=== PATIENT | female | born 1980 | race Caucasian/White ===

== ENCOUNTER 2025-03-19 19:49 | Emergency (ER) | payer OTHER, SELFPAY ==
[2025-03-19 19:59] VITALS: BP 148/92
[2025-03-19 20:26] LABS: Hematocrit 37.4 % (37.0-47.0); Hemoglobin 12.5 g/dL (12.0-16.0); Mean Corp Hgb Conc. 33.4 g/dL (33.0-37.0); Mean Corpuscular Volume 88.8 fL (81.0-99.0); Nucleated Red Blood Cells % 0 %; Platelet Count 235 10^3/uL (130-400); Red Cell Dist. Width 14.1 % (11.5-14.5)
[2025-03-19 20:42] LABS: HCG, Serum Qualitative Screen Negative
[2025-03-19 20:47] LABS: ALT (SGPT) 17 U/L (0-35); AST (SGOT) 18 U/L (14-36); Albumin 4.6 g/dl (3.5-5.0); Alkaline Phosphatase 52 U/L (38-126); Blood Urea Nitrogen 11 mg/dl (7-17); Calcium 9.6 mg/dl (8.4-10.2); Carbon Dioxide 27 mmol/L (22-30); Chloride 102 mmol/L (98-107); Glucose 123 mg/dl (70-99); Potassium 3.9 mmol/L (3.5-5.1); Sodium 136 mmol/L (135-145); Total Protein 7.5 g/dl (6.3-8.2); eGFR > 60.00
[2025-03-19 21:41] VITALS: BMI 23.9
[2025-03-19 21:47] VITALS: BP 135/82
[2025-03-19 22:00] VITALS: BP 140/86
--- NOTE | 2025-03-19 23:31 | ED.GENMED ---
History of Present Illness
General
Chief Complaint: Vaginal Bleeding
Source: patient
Time Seen by Provider: 03/19/25 22:28
History of Present Illness
History of Present Illness:
44-year-old female, no significant past medical history, presenting to the ER for evaluation after she started her menstrual normally 2-1/2 weeks ago but has had continuous bleeding since then. She notes some mild fatigue but otherwise feels her
usual self. No history of similar. Has not seen or contacted her RATE CLERK since symptoms started. Denies any oral contraceptives. Denies any fevers. No concern for . Denies any significant pain at time of my exam.
Past History
Past History
ED Past Medical History: None
ED Past Surgical History: None
Social History
Tobacco: Smoker
Alcohol: Occasional
Drug: None
Living: with family
Employment: Employed
Review of Systems
Review of Systems
All Other Systems: ROS reviewed and negative except as documented in HPI and ROS
Phy Exam
Physical Exam
Physical Exam:
GENERAL: Alert , in no apparent distress
EYE: clear conjunctiva b/l
HEAD: NCAT
ENT: mmm.
CARDIAC: Regular rate and rhythm .
LUNGS: Clear breath sounds bilaterally, no acute respiratory distress, no wheezes/rales/rhonchi
ABDOMEN: Soft, without focal tenderness, no r/g, no cvat
NEUROLOGICAL: Alert and oriented
SKIN: Warm and dry, skin intact.
MUSCULOSKELETAL: well perfused.
PSYCH: Normal and appropriate interaction.
Scores
Heart Failure Risk
Heart Failure Risk Score: Not Applicable
Heart Score for Chest Pain Patients
STEMI patient?: Not applicable
Withdrawal Assessment of Alcohol
Withdrawal Assessment Completed?: Not applicable
Course
Orders/Labs/Results
Orders:
Orders
03/19/25 20:03
Test Result ONCE
03/19/25 20:10
CMP [Comprehensive Metabolic Panel] Urgent
Complete Blood Count/With Diff Urgent
HCG, Serum Qualitative Screen Urgent
Comment: Notify provider if positive test present
03/19/25 22:28
Transvaginal US [US Pelvis W Transvag Combined] Urgent
Comment:
Reason For Exam: menorrhagia
Abnormal Lab Results
03/19/25
20:10
Neutrophils % 41.1 L %
(42.2-75.2)
Monocytes % 10.6 H %
(1.7-9.3)
Glucose 123 H mg/dl
(70-99)
03/19/25 20:10
03/19/25 20:10
Vital Signs
Initial and Last Documented VS:
Initial Vital Signs
Temp Pulse Resp BP Pulse Ox
98.5 F 73 18 148/92 100
03/19/25 19:59 03/19/25 19:59 03/19/25 19:59 03/19/25 19:59 03/19/25 19:59
Last Documented Vital Signs
Temp Pulse Resp BP Pulse Ox
98.5 F 54 18 134/90 99
03/19/25 19:59 03/19/25 21:47 03/19/25 21:47 03/19/25 23:38 03/19/25 23:39
MDM/Problems Addressed
Differential Diagnosis Includes:
Perimenopause
Uterine Fibroid
Anemia
Malignancy
MDM/Problems Addressed:
44-year-old female presenting to the ER for evaluation of breakthrough vaginal bleeding/menorrhagia over the last 2-1/2 weeks. Hemodynamically stable and in no acute distress. Labs were initiated in triage which show a normal hemoglobin. Will
order ultrasound to further assess with anticipation of need for outpatient follow-up with RATE CLERK.
*Radiology
Radiology exam reviewed: radiology read reviewed
*Pulse Oximetry
SaO2: 100
Oxygen Mode of Delivery: Room air
Patient hypoxic: no
*Critical Care Note
Total Time (30-74mins, 75-104mins- exclusive of procedures): Not Applicable
Comment
Comment:
IMPRESSION: Coarsening of uterine echotexture throughout the myometrium, with no evidence of a focal mass. One consideration for this finding would be adenomyosis. If there are persistent clinical symptoms and further imaging evaluation is desired,
MRI is more accurate in the diagnosis of adenomyosis.
Normal appearance of the endometrium.
Small minimally complex cyst arising in the left ovary, which is almost certainly benign, classified as O-RADS 2. In a 44-year-old, no further imaging follow-up is recommended.
Normal appearance of the right ovary.
Small amount of free pelvic fluid.
Patient Management
Escalation/DeEscalation of care consider admission/obs:
Ultrasound without any acute abnormalities. Patient will contact her RATE CLERK for outpatient follow-up. Will trial a 5-day course of oral TXA to help control symptoms. Patient aware of return precautions to the ER.
ED Attending Note
-
Portions of this chart may have been created with voice recognition software.� Occasional wrong word or��sound alike� substitutions may have occurred due to the inherent limitations of voice recognition software.
Discharge Plan
Departure
Patient Disposition: Home (Routine Discharge)
Date of Disposition: 03/19/25
Time of Disposition: 23:31
Patient with high blood pressure during this ER visit?: Yes
Discharge Problem:
Dysfunctional uterine bleeding
Instructions: Heavy periods - ED (DC)
Prescriptions:
New
tranexamic acid 650 mg tablet
1,300 mg PO TID 5 Days Qty: 30 0RF
No Action
amoxicillin-pot clavulanate 875-125 mg tablet
1 tab PO Q12H Qty: 13 0RF
albuterol sulfate [ProAir HFA] 90 mcg/actuation Hfa Aerosol Inhaler
2 puff INHALATION Q4HPRN PRN (Reason: shortness of breath/cough) Qty: 8.5 0RF
benzonatate 100 mg capsule
100 mg PO TID PRN (Reason: Cough) Qty: 20 0RF
Referrals:
UNKNOWN - PT DOES,NOT KNOW [Family Provider]
Interventions
Interventions:
*Risk Screen - Suicide Last Done: 03/19/25 19:59
*General Assessment Last Done: 03/19/25 21:41
*Neglect/Abuse Screening Last Done: 03/19/25 21:41
*ED- Fall Risk Assessment Last Done: 03/19/25 21:41
*ED COVID-19 Vaccine History Last Done: 03/19/25 21:41
*ED Influenza Vaccine History Last Done: 03/19/25 21:41
*Nursing Disposition Last Done: 03/19/25 23:41
ED-Female Genitourinary Assessment Last Done: 03/19/25 21:44
Discharge Date and Time
Discharge Date/Time: 03/19/25 23:47
Print Language: SENEGALESE
[2025-03-19 23:38] VITALS: BP 134/90
== END 2025-03-19 23:47 | disposition home or self-care (01) ==
LOC: EMR 19:49
PROVIDERS: Emergency Medicine; EMERGENCY PHYSICIAN Emergency Medicine
DX: N93.8 Other specified abnormal uterine and vaginal bleeding (principal); N83.292 Other ovarian cyst, left side; R03.0 Elevated blood-pressure reading, without diagnosis of hypertension; F17.200 Nicotine dependence, unspecified, uncomplicated
CPT/HCPCS: 99284; 76830; 76856; 80053; 84703; 85025